=== PATIENT | male | born 1995 | race Caucasian/White ===

== ENCOUNTER 2018-02-01 23:25 | Inpatient (IN) | payer OTHER ==
[~2018-02-01] VITALS: Ht 182.9 cm; Wt 95.6 kg
[2018-02-02 00:18] LABS: HEMATOCRIT 44.2 % (38.0-50.0); HEMOGLOBIN 16.3 G/DL (12.5-16.6); MCHC 36.9 G/DL (30.0-36.0); MCV 81.4 FL (86-99); PLATELET COUNT 396 K/uL (156-360); RBC DIS.WIDTH-CV 11.4 % (11.8-14.6); RBC DIS.WIDTH-SD 33.2 % (39-53); RED BLOOD COUNT 5.43 M/uL (4.00-5.50); WHITE BLOOD COUNT 17.1 K/uL (4.1-10.2)
[2018-02-02 00:29] LABS: ALBUMIN 5.1 g/dL (3.2-4.8); CHLORIDE 90 mEq/L (99-109)
[2018-02-02 00:30] LABS: POTASSIUM 5.9 mEq/L (3.7-5.4); SODIUM 133 mEq/L (136-147)
[2018-02-02 00:32] LABS: GLUCOSE 92 mg/dL (70-99); TOTAL PROTEIN 9.9 g/dL (6.4-8.3)
[2018-02-02 00:34] LABS: TOTAL BILIRUBIN 1.5 mg/dL (0.0-1.0)
[2018-02-02 00:35] LABS: ALKALINE PHOSPHATASE 98 IU/L (3-129); CREATININE 1.2 mg/dL (0.6-1.3); GFR ESTIMATE (CALCULATED) > 59 mL/min/ (58.99-99999)
[2018-02-02 00:37] LABS: AST (GOT) 111 IU/L (2-34); UREA NITROGEN (BUN) 15 mg/dL (9-23)
[2018-02-02 00:38] LABS: ALT (GPT) 338 IU/L (3-49)
[2018-02-02 00:46] LABS: MAGNESIUM 3.6 mg/dL (1.3-2.7)
[2018-02-02 01:04] LABS: APPEARANCE CLEAR ((CLEAR)); BILIRUBIN NEGATIVE; BLOOD NEGATIVE; COLOR YELLOW ((YELLOW)); GLUCOSE (STRIP) NEGATIVE; KETONES 20; LEUKOCYTES NEGATIVE; NITRITE NEGATIVE; PROTEIN (STRIP) 30; UCUL ADDED? NO; UROBILINOGEN 0.2 MG/DL (0.2-1.0)
[2018-02-02 01:15] LABS: AMPHETAMINE NEGATIVE (500 ng/mL); BARBITURATES NEGATIVE (200 ng/mL); BENZODIAZEPINES NEGATIVE (150 ng/mL); COCAINE NEGATIVE (150 ng/mL); METHADONE NEGATIVE (200 ng/mL); METHAMPHETAMINE NEGATIVE (500 ng/mL); OPIATES (MORPHINE) NEGATIVE (100 ng/mL); OXYCODONE PRESUMPTIVE POSITIVE (100 ng/mL); PHENCYCLIDINE NEGATIVE (25 ng/mL); PROPOXYPHENE NEGATIVE (300 ng/mL); THC CANNABINOIDS PRESUMPTIVE POSITIVE (50 ng/mL); TRICYCLIC ANTIDEPRESSANTS NEGATIVE (300 ng/mL)
[2018-02-02 01:16] LABS: BUPRENORPHINE NEGATIVE (10 ng/mL)
[2018-02-02 01:30] LABS: AMYLASE 33 IU/L (1-118)
[2018-02-02 01:39] LABS: LIPASE 9 U/L (1.0-51.0)
[2018-02-02 04:15] LABS: CHLORIDE 97 mEq/L (99-109); SODIUM 136 mEq/L (136-147)
[2018-02-02 04:17] LABS: GLUCOSE 95 mg/dL (70-99)
[2018-02-02 04:19] LABS: TROP-I INTERPRETATION NEGATIVE; TROPONIN-I 0.07 ng/mL (0.0-0.30)
[2018-02-02 04:21] LABS: CREATININE 0.9 mg/dL (0.6-1.3); GFR ESTIMATE (CALCULATED) > 59 mL/min/ (58.99-99999); POTASSIUM 2.8 mEq/L (3.7-5.4)
[2018-02-02 04:22] LABS: UREA NITROGEN (BUN) 13 mg/dL (9-23)
[2018-02-02 06:34] LABS: ALBUMIN 4.3 g/dL (3.2-4.8)
[2018-02-02 06:35] LABS: CHLORIDE 98 mEq/L (99-109); POTASSIUM 3.1 mEq/L (3.7-5.4); SODIUM 136 mEq/L (136-147)
[2018-02-02 06:37] LABS: GLUCOSE 100 mg/dL (70-99); TOTAL PROTEIN 7.2 g/dL (6.4-8.3)
[2018-02-02 06:39] LABS: TOTAL BILIRUBIN 1.6 mg/dL (0.0-1.0)
[2018-02-02 06:40] LABS: ALKALINE PHOSPHATASE 84 IU/L (3-129)
[2018-02-02 06:41] LABS: GFR ESTIMATE (CALCULATED) > 59 mL/min/ (58.99-99999)
[2018-02-02 06:42] LABS: AST (GOT) 71 IU/L (2-34); UREA NITROGEN (BUN) 13 mg/dL (9-23)
[2018-02-02 06:44] LABS: ALT (GPT) 263 IU/L (3-49)
[2018-02-02 07:15] VITALS: BP 131/72
[2018-02-02 07:39] LABS: INTACT PARATHYROID HORMONE 26 pg/mL (10-69)
[2018-02-02 07:52] LABS: THYROTROPIN (TSH) 2.8 MIU/L (0.4-5.5)
[2018-02-02 09:24] LABS: HEPATITIS B SURFACE ANTIGEN Nonreactive; HEPATITIS C ANTIBODY Nonreactive
[2018-02-02 09:25] LABS: ANTI-HEPATITIS A VIRUS (IGM) Nonreactive
[2018-02-02 09:26] LABS: ANTI-HEPATITIS B CORE (IGM) Nonreactive
[2018-02-02 12:28] VITALS: BP 121/68
[2018-02-02 16:14] VITALS: BP 142/86
[2018-02-02 21:00] VITALS: BP 127/62
[2018-02-02 21:16] LABS: PHOSPHORUS 3.1 mg/dL (2.5-4.9); POTASSIUM 3.6 MEQ/L (3.7-5.4)
[2018-02-03] VITALS: BP 128/83
[2018-02-03 06:03] VITALS: BP 113/78
[2018-02-03 06:16] LABS: BASOPHIL (%) 0.4 % (0-1); BASOPHIL COUNT 0.1 K/uL (0-0.1); EOSINOPHIL (%) 0.5 % (0-5); EOSINOPHIL COUNT 0.1 K/uL (0-0.3); HEMATOCRIT 36.2 % (38.0-50.0); IMMATURE GRANULOCYTE (%) 0.3 % (0.0-0.7); LYMPHOCYTE (%) 11.8 % (15-42); LYMPHOCYTE COUNT 1.5 K/uL (1.0-2.8); MCHC 35.1 G/DL (30.0-36.0); MCV 82.6 FL (86-99); MONOCYTE (%) 10.1 % (3-12); MONOCYTE COUNT 1.3 K/uL (0-0.8); NEUTROPHIL (%) 76.9 % (45-76); NEUTROPHIL COUNT 9.9 K/uL (1.8-6.4); PLATELET COUNT 278 K/uL (156-360); RBC DIS.WIDTH-CV 11.6 % (11.8-14.6); RBC DIS.WIDTH-SD 34.8 % (39-53); RED BLOOD COUNT 4.38 M/uL (4.00-5.50); WHITE BLOOD COUNT 12.9 K/uL (4.1-10.2)
[2018-02-03 06:23] LABS: HEMOGLOBIN 12.7 G/DL (12.5-16.6)
[2018-02-03 07:21] VITALS: BP 142/84
[2018-02-03 09:45] LABS: ALBUMIN 4.6 G/DL (3.2-4.8); ALKALINE PHOSPHATASE 78 IU/L (3-129); ALT (GPT) 165 IU/L (3-49); AST (GOT) 40 IU/L (2-34); CHLORIDE 103 MEQ/L (99-109); CREATININE 0.9 MG/DL (0.6-1.3); GFR ESTIMATE (CALCULATED) > 59 mL/min/ (58.99-99999); GLUCOSE 101 mg/dL (70-99); POTASSIUM 4.1 MEQ/L (3.7-5.4); SODIUM 134 MEQ/L (136-147); TOTAL BILIRUBIN 1.5 MG/DL (0.0-1.0); TOTAL PROTEIN 7.2 G/DL (6.4-8.3); UREA NITROGEN (BUN) 9 mg/dL (9-23)
[2018-02-03 12:01] VITALS: BP 133/73
[2018-02-03 15:34] VITALS: BP 172/80
[2018-02-04 00:35] VITALS: BP 138/80
[2018-02-04 06:50] LABS: HEMATOCRIT 40.1 % (38.0-50.0); HEMOGLOBIN 13.6 G/DL (12.5-16.6); MCH 28.3 PG (29.0-34.0); MCHC 33.9 G/DL (30.0-36.0); MCV 83.4 FL (86-99); PLATELET COUNT 296 K/uL (156-360); RBC DIS.WIDTH-CV 11.8 % (11.8-14.6); RBC DIS.WIDTH-SD 35.5 % (39-53); RED BLOOD COUNT 4.81 M/uL (4.00-5.50); WHITE BLOOD COUNT 13.4 K/uL (4.1-10.2)
[2018-02-04 07:58] VITALS: BP 159/88
[2018-02-04] MEDS ORDERED: ERGOCALCIF50000 UNIT PO (13:53)
== END 2018-02-04 15:13 | disposition home or self-care (01) | DRG 392 ==
LOC: EME 23:25 → EDOF 02-02 06:02 → 5SOUTH 02-02 06:02 → ENRESERV 02-02 06:04 → 4EAST 02-02 07:11 → ENRESERV 02-03 14:02 → 5SOUTH 02-03 15:25
PROVIDERS: Hospitalist; Internal Medicine; Physician Assistant; Student in an Organized Health Care Education/Training Program
DX: A08.4 Viral intestinal infection, unspecified (principal); E83.51 Hypocalcemia; E86.0 Dehydration; R74.8 Abnormal levels of other serum enzymes; F12.10 Cannabis abuse, uncomplicated; E55.9 Vitamin D deficiency, unspecified
CPT/HCPCS: 71046; 76705; 80048 91; 80053; 80074; 81003; 82150; 82306; 82330; 82607; 83690; 83735; 83970; 84100; 84132 91; 84443; 84484; 84999; 85025; 85027; 93005; 99281; 99285; C9113; J1650; J2405; J7030; J7040; J7042; J7050